=== PATIENT | male | born 1950 | race Caucasian/White ===

== ENCOUNTER 2025-02-06 10:24 | Outpatient (AMB) | payer MEDICARE, SELFPAY ==
--- OUTSIDE RECORDS SUMMARY | 2025-02-06 10:48 | XMS_ITS | Clinical Summary ---
Author Organization [facility] Address [address] [place] [address] Care Team Providers Care Marine Consultant Name Role Phone ChandanaRoger Giorgio Frazier Primary Care Provider Allergies No known active allergies Medications aspirin 81 mg EC tablet 81 mg daily. 5 Active atorvastatin (LIPITOR) 10 mg tablet 10 mg. 8 Active metFORMIN (GLUCOPHAGE) 1,000 mg tablet 8 Active therapeutic multivitamin (THERAGRAN) tablet Take 1 tablet by mouth. Active gabapentin (NEURONTIN) 300 mg capsule Take 300 mg by mouth 2 (two) times a day. Active metFORMIN (GLUCOPHAGE) 1,000 mg tablet metformin Acti ve multivitamin with minerals tablet Take by mouth. Active vit C/E/Zn/coppr/lute in/zeaxan (PRESERVISION AREDS-2 ORAL) Active OneTouch Ultra test strips 1 strip by Other route once a day. Active Active Problems Problem Noted Date Diagnosed Date Acute bacterial sinusitis 05/04/2021 Cervical spondylosis with radiculopathy 03/23/20 21 Overview (05/04/2021): Left C5-C6 Erectile dysfunction due to type 2 diabetes daniella itus 03/23/2021 Kidney cyst, acquired 10/08/2020 Overview (05/04/2021): Left. US 10/07/2020 Colon cancer screening 09/03/2020 Overview (05/04/2021): Colonoscopy 12/18/13 [place] PVD (peripheral vascular disease) 09/03/2020 [place] (obstructive sleep apnea) 06/15/2020 Overview (05/04/2021): Not using CPAP Type 2 diabetes mellitus with diabetic neuropath y 06/15/2020 Diabetes 03/27/2018 Family history of BRCA1 gene positive 01/30/2018 Counseling about travel 07/20/2015 Hyperlipidemia 12/03/2009 Cervical disc disorder at C5-C6 level with radic ulopathy Immunizations Immunization Administration Dates Next Due Hepatitis A Vaccine, Adult Dosage 01/26/2016,,12/03/2009 Influenza, Trivalent, MDV, Injectable ,05/27/2016,05/12/2015,05/05 Pneumococcal Conjugate Vacci ne, 13 Valent 03/31/2016,07/20/2015 Pneumococcal Polysaccharide Vaccine, 23 Valent 07/20/2016,12/04/2012 Tetanus Toxoid, Reduced Diph theria Toxoid, and Acellular Pertussis Vaccine, Adsorbed 07/12/2011,12/03/2009 Typhoid Vi Capsular Polysacc haride Vaccine 03/27/2018,07/20/2015,12/03/2009 Yellow Fever Vaccine Alterna tive Formulation 03/29/2018 Social History Tobacco Use Types Packs/Day Years Used Date Smoking Tobacco: Former Smokeless Tobacco: Never Comments:: Alcohol Use Standard Drinks/Week Comments Yes 0 (1 standard drink = 0.6 oz pur e alcohol) 2-3 weekly Sex and Gender Information Value Date Recorded Sex Assigned at Male 03/18/2021 8:32 AM EDT Legal Sex Male 7:40 AM EDT Gender Identity Male 03/18/2021 8:32 AM EDT Sexual Orientation Straight 03/18/2021 8: 32 AM EDT Last Filed Vital Signs Vital Sign Reading Time Taken Comments Blood Pressure 136/75 03/27/2018 1:33 PM EDT Pulse 78 03/27/2018 1:33 PM EDT Temperature 37.2 C (99 F) 03/27/2018 1:33 PM EDT Respiratory Rate 20 03/27/2018 1:3 3 PM EDT Oxygen Saturation - - Inhaled Oxygen Concentration - - Weight 121.5 kg (267 lb 12.8 oz) 2020 12:23 PM EDT Height 188 cm (6' 2 ) 05/04/2021 12:23 PM EDT Body Mass Index 34.38 05/04/2021 12:23 PM EDT Plan of Treatment Health Maintenance Due Date Last Done Comments Basic Metabolic Panel 1950 Cologuard 1950 Colon Cancer Screening 1950 Colonoscopy 1950 FOBT / Fit Test 1950 Hepatitis C Screening 1950 Sigmoidoscopy 1950 Ophthalmology Exam [address] Lung Cancer Screening (Baseline) 2000 DTaP,Tdap,and Td Vaccines (3 - Td or Tdap) 07/12/2021 07/12/2011, 12/03/2009, 11/17/1996 Hemoglobin A1C 09/20/2021 03/23/2021, 08/23, 07/18/2020 COVID-19 Vaccine ( season) 2024 10/27/2020, 10/06/2020 Alcohol/Substance Use Screening 07/23/2024 Depression Screening and Follow-Up 07/23/2024 Health Care Proxy Review 07/23/2024 Social Drivers of Health Annual Screening 07/23/2024 Influenza Vaccine (#1) 2025 , 05/02/2019, 04/26/2018, Additional history exists RSV Vaccine (60+ years old and patients) (1 - 1-dose 75+ series) 2025 Pneumococcal Vaccine: 50+ Years Completed 07/20/2016, 03/31/2016, 07/20/2015, Additional history exists Zoster Vaccines Completed 11/06/2018, 08/07/2018 Hepatitis B Vaccines Aged Out No long er eligible based on patient's age to complete this topic Insurance BCBS [employer] REPL[employer] PPO Care Teams Marine Consultant Relationship Specialty Start Date End Date Giorgio Nazario PCP - General 02/08/17
--- OUTSIDE RECORDS SUMMARY | 2025-02-06 10:48 | XMS_ITS | Clinical Summary ---
Author Organization [facility] Address [address] [place] [address] Phone Care Team Providers Care Clamshell Operator Name Role Phone Giorgio Nazario MD Primary Care Pr ovider Self-Referred, Patient Unavailable Unavailab Mary Wright MD, MPH Unavailable [phone] Allergies Active Allergy Reactions Criticality Noted Date Comments Penicillins Unknown 01/22/2018 Medications atorvastatin (LIPITOR) 10 MG tablet 10 mg. 8 Active metFORMIN (GLUCOPHAGE) 1000 MG tablet 1 tablet 2 (two) times a day. 8 Active aspirin 81 MG EC tablet Take 81 mg by mouth daily. Active therapeutic multivitamin tablet Take 1 tablet by mouth daily. Active omega 7-umt-whs-fish oil 1,000 mg (120 mg-180 mg) Cap Take 1 capsule by mouth daily. Active coenzyme Q10 100 mg capsule Take 100 mg by mouth daily. Active pseudoephedrine (SUDAFED 12 HOUR) 120 mg 12 hr tablet Take 1 tablet every 12 hours by oral route for 5 days. Active azithromycin (ZITHROMAX) 250 MG tablet TAKE 2 TABLETS (500 MG) BY ORAL ROUTE ONCE DAILY FOR 1 DAY THEN 1 TABLET (250 MG) BY ORAL ROUTE ONCE DAILY FOR 4 DAYS Active Active Problems Problem Noted Date Diagnosed Date Family history of BRCA1 gene positive 01/30/2018 Social History Tobacco Use Types Packs/Day Years Used Date Smoking Tobacco: Never Smokeless Tobacco: Never Alcohol Use Standard Drinks/Week Comments Yes 0 (1 standard drink = 0.6 oz pur e alcohol) 0-6 drinks week Education Answer Date Recorded Are you interested in more education? Not on cristela e 11/21/2022 Are you concerned about learning? Not on file 11/21/2022 No 11/21/2022 No 11/21/2022 Digital Access Answer Date Recorded No 12/17/2022 No 12/17/2022 No 12/17/2022 Reliable internet access at home? Not on file 12/17/2022 Device with a working camera? Not on file Sex and Gender Information Value Date Recorded Sex Assigned at Not on file Legal Sex Male 6:48 PM EST Gender Identity Not on file Sexual Orientation Not on file Last Filed Vital Signs Vital Sign Reading Time Taken Comments Blood Pressure 128/67 01/22/2018 1:15 PM EDT Pulse 64 01/22/2018 1:15 PM EDT Temperature 36.7 C (98.1 F) 01/22/2018 1:15 PM EDT Respiratory Rate 16 01/22/2018 1:15 PM EDT Oxygen Saturation - - Inhaled Oxygen Concentration - - Weight 123.6 kg (272 lb 7.8 oz) 01/22/2018 1:15 PM EDT Height 186 cm (6' 1.23 ) 01/22/2018 1:15 PM EDT dfci Body Mass Index 35.73 01/22/2018 1:15 PM EDT Plan of Treatment Health Maintenance Due Date Last Done Comments Adult Td,Tdap Booster 1950 CREATININE LEVEL 1950 LIPID PANEL 1950 DEPRESSION SCREENING 1962 HEPATITIS C SCREENING 1968 COLOGUARD 11/24/1995 COLONOSCOPY 11/24/1995 COLORECTAL CANCER SCREENING 11/24/1995 FIT TEST 11/24/1995 FOBT 11/24/1995 SIGMOIDOSCOPY 11/24/1995 VIRTUAL COLONOSCOPY 11/24/1995 PNEUMOCOCCAL VACCINES (50+ years) (1 of 1 - PCV) 2000 COVID-19 VACCINE (2 - 2023-2 5 season) 2024 10/06/2020 RSV VACCINE (1 - 1-dose 75+ series) 2025 SMOKING STATUS SCREENING (On ce After 26 Yrs) Completed 01/22/2018 ZOSTER VACCINES Completed 11/06/2018, 08/07/2018 HEPATITIS A VACCINES Aged Out No long er eligible based on patient's age to complete this topic HIB VACCINES Aged Out No longer eligi ble based on patient's age to complete this topic MENINGOCOCCAL VACCINES (ACWY) Aged Out No longer eligible based on patient's age to complete this topic MENINGOCOCCAL VACCINES (B) Aged Out N o longer eligible based on patient's age to complete this topic Medical Devices Not on file Insurance [place] BL[place] RE[place]AC[place] [facility] MEDICARE PPO BLUE REPLACEMENT [facility] MEDICARE PPO BLUE REPLACEMENT [facility] MEDICARE PPO BLUE REPLACEMENT [facility] MEDICARE PPO BLUE REPLACEMENT [facility] MEDICARE PPO BLUE REPLACEMENT [facility] MEDICARE PPO BLUE RE[place]AC[place] BL[place]AC[place] Care Teams Clamshell Operator Relationship Specialty Start Date End Date [place] [address] PCP - General Family Medicine 01/01/18 Self-Referred, Patient 01/01/18 Mary Jordan MD, MPH [address] [place], [place] [id number] [place] [address] [email or web address] Medical Oncology 01/22/18 Additional Source Comments The information contained in this document represents components of the legal health record. It is not the complete legal health record.[facility]
--- OUTSIDE RECORDS SUMMARY | 2025-02-06 10:48 | XMS_ITS | Encounter Summary ---
Author Organization [facility] Address [address] [place] [address] Care Team Providers Care Card Cleaner Name Role Phone Giorgio Nazario MD Primary Care Provid er Suzanna Arreaga MD Unavailable [phone] Americo Haque MD Unavailable Haroldo Giraldo Unavailable Giorgio Lundberg MD Unavailable Marcelo Hall MD Unavailable [phone] Fam Dia MD Unavailable [phone] Khurram Santos MD Unavailable [phone] Americo Alicea MD Unavailable [phone] Junaid Cortés MD Unavailable [phone] Mohsen Eid MD Unavailable [phone] Suzanna Moore Unavailable [phone] Encounter Details Date Type Department Care Team (Late st Contact Info) Description 06/24/2017 Orders Only [place] [address] [address] Winsome Flores NP Social History Tobacco Use Types Packs/Day Years Used Date Smoking Tobacco: Never Smokeless Tobacco: Never Alcohol Use Standard Drinks/Week Comments Not Asked 0 (1 standard drink = 0.6 oz pur e alcohol) Sex and Gender Information Value Date Recorded Sex Assigned at Male 03/23/2021 8:14 AM EDT Legal Sex Male 10:42 PM EDT Gender Identity Male 03/23/2021 8:14 AM EDT Sexual Orientation Straight 03/23/2021 8: 14 AM EDT documented as of this encounter Plan of Treatment Upcoming Encounters Date Type Department Care Team (Late st Contact Info) Description 06/15/2025 10:40 AM EST Office Visit [facility] [address] [place] [address] Giorgio Nazario MD [address] [place] [address] 6 Month Followup documented as of this encounter Procedures * Due to [facility] law, this organization might not be sharing negative HIV tests. Procedure Name Priority Date/Time Associated Diagnosis Comments EKG-USE ONLY IN READYMED/OCC MED/CARDIO Routine 06/23/2017 11:35 AM EST Irregular heart beat documented in this encounter Results * Due to [place] [employer] law, this organization might not be sharing negative HIV tests. * EKG-USE ONLY IN READYMED/OCC MED/CARDIO OR AGE <18 (06/23/2017 11:35 AM EST) VENTRICULAR RATE 50 BPM MUS E EKG SYSTEM ATRIAL RATE 50 BPM MUSE EKG SYSTEM P-R INTERVAL 160 ms MUSE EK G SYSTEM QRS DURATION 90 ms MUSE EK G SYSTEM QT 448 ms MUSE EKG SYSTEM QTC 408 ms MUSE EKG SYSTEM P AXIS 5 degrees MUSE EKG SYSTEM R AXIS -32 degrees MUSE EKG SYSTEM T AXIS 13 degrees MUSE EKG SYSTEM EKG INTERPRETATION Sinus bradycardia Left axis deviation Abnormal ECG No previous ECGs available MUSE EKG SYSTEM 06/23/2017 11:3 5 AM EST 06/24/2017 9:07 PM EST us Winsome Flores NP CARDIOVASCULAR-WITH INBSKT RT G Final Result MUSE EKG SYSTEM documented in this encounter Visit Diagnoses Diagnosis Irregular heart beat Cardiac dysrhythmia, unspecified documented in this encounter Care Teams Card Cleaner Relationship Specialty Start Date End Date Giorgio Nazario MD PCP - General Family Medicine 11/10/14 Suzanna Arreaga MD [facility] [address] [place] [address] Consulting Physician Optometry 06/15/20 Americo Haque MD [facility] [address] [place] [address] Consulting Physician Hand Surgery 06/15/20 10/12/22 Haroldo Giraldo [address] [place] [address] Consulting Physician Orthopaedic Surgery 06/15/2010/12 Giorgio Lundberg MD [facility] [address] [address] Consulting Physician Allergy 06/15/20 10/12/22 Marcelo Hall MD [facility] [address] [facility] [address] [place] [address] Consulting Physician Orthopaedic Surgery 09/03/2010/12 Fam Dia MD [address] [place] [address] Urology 03/23/21 10/12/22 Khurram Santos MD [facility] [address] [place] [address] [address] [place] [address] Ophthalmology 03/23/21 10/12/22 Americo Alicea MD [address] [place] [address] Ophthalmology 10/26/23 Junaid Cortés MD [address] [place] [address] Gen & Vascular Surgery 10/26/23 5 Mohsen Eid MD [address] [address] Orthopedics 10/26/23 Suzanna Moore PA [address] [place] [address] Orthopedics 10/26/23 documented as of this encounter
--- OUTSIDE RECORDS SUMMARY | 2025-02-06 10:48 | XMS_ITS | Data Portability ---
Author Organization [facility] svmg_admin Address [address] [place] [id number] Care Team Providers Care Director Of Blood Name Role Phone FAHEEM VANCE Referring Provider [facility] Senior Internet Sales Consultant GABRIELA PEOPLES Adult Reconstructive Orthopedic Surgeon ARNAUD LOPEZ Hand Surgeon MING GUARDADO Welt Stitcher Assessment Encounter Date Assessment Date Assessment LastModified by Organization Details LastModified Time 10/17/2017 10/17/2017 MOLST form given to pt christopher Not available 10/17/2017 09:06:10 05/07/2019 05/07/2019 MOLST form given to pt christopher Not available 05/07/2019 08:55:24 11/07/2019 11/07/2019 This is a Telehealth visit, via modality telephone. Patient understands the risks, benefits and limitations of this type of visit. Patient consents for this visit This type of visit is being utilized as it was deemed higher risk for patient to come to office given the current risk of COVID-19/coronav irus infection. The patient is located at home at the time of this visit. Physician is located at [address] [place] [address] at the time of this visit, [facility] Visit Began: 8:30 AM Visit Ended: 8:45 AM 50% or greater of the time was spent on counselling and coordination of care. The following people were with the patient at time of this Telehealth visit: Patient only christopher Not available 11/07/2019 08:37:49 Plan of Treatment Reminders Order Date Submit Date Provider Last Modified By Organization Details Last Modified Time Details Appointments None record ed. Lab HbA1c (hemog lobin A1c), blood 2019 [place] [facility], [address] [place] [address], [address], 0 07:06:14 microa lbumin /creat inine, mass ratio, urine 2019 020 [place] [facility], [address] [place] [address], [address], 0 07:06:14 lipid panel, serum 2019 020 [facility], [address] [place] [address], [address], 0 07:06:13 CMP, serum or plasma 2019 020 [place] [facility], [address] [place] [address], [address], 0 07:06:13 TSH, ultra- sensit kenneth, serum 2019 020 [facility], [address] [place] [address], [address], 0 07:06:15 PSA, serum or plasma 2018 019 [facility]), [address], [place], [address], 9 12:41:11 HbA1c (hemog lobin A1c), blood 2018 019 [facility] ([facility]), [address], [place], [address], 9 05:05:30 microa lbumin /creat inine, mass ratio, urine 2018 019 [facility] ([facility]), [address], [place], [address], 9 12:41:00 HbA1c (hemog lobin A1c), blood 2018 019 [facility] ([facility]), [address], [place], [address], 9 15:09:35 lipid panel, serum 2018 019 [facility] ([facility]), [address], [place], [address], 9 15:09:49 CMP, serum or plasma 2018 019 [facility] ([facility]), [address], [place], [address], 9 15:09:40 prosta te specif ic Ag, serum or plasma 2017 018 [facility] ([facility]), [address], [place], [address], 8 17:26:36 HbA1c (hemog lobin A1c), blood 2017 018 [facility] ([facility]), [address], [place], [address], 8 17:06:25 microa lbumin /creat inine, mass ratio, urine 2017 018 [facility] ([facility]), [address], [place], [address], 8 17:08:09 hepati tis C Ab, signal -to-cu toff, serum or plasma 2017 018 [facility] ([facility]), [address], [place], [address], 8 09:33:37 HbA1c (hemog lobin A1c), blood 2017 018 [facility], [address] [place] [address], [address], 8 14:53:17 lipid panel, serum 2017 018 [facility], [address] [place] [address], [address], 8 13:40:15 CMP, serum or plasma 2017 018 [facility], [address] [place] [address], [address], 8 13:40:14 Referral allerg ist & immuno logist referr al - H/O PCN allerg y as a child. Would like to see if this is real 2017 018 [facility], [address] [place] [address] [address], [place], [address], 8 09:45:27 Procedures colono scopy screen ing (PROC) - 5 year F/U colono sscopy 2017 018 ATHENAFAX Not available 8 13:45:20 Surgeries None record ed. [facility], [address] [place] [address], [address], 9 08:58:21 Medication Orders topira mate 25 mg tablet 2019 020 INTERFACE [id number], [address] [place], [address], 0 08:52:47 Lyrica 50 mg capsul e 2017 018 jruanoescobar [id number], [address] [place], [address], 9 08:19:21 gabape ntin 100 mg capsul e 2017 018 linnette on [id number], [address] [place], [address], 8 08:41:30 Patient TargetsNo targets recorded. Patient Instructions Encounter Date Encounter Id Patient Instructions Last Modified By Organization Details Last Modified Time 10/17/2017 [id number] A healthy lifestyle: care instructions christopher Not available 10/17/2017 09:23:33 type 2 diabetes: care instructions christopher Not available 10/17/2017 09:23:34 04/22/2018 [id number] advance care planning: care instructions christopher Not available 04/22/2018 08:56:13 A healthy lifestyle: care instructions christopher Not available 04/22/2018 08:56:14 preventing falls: care instructions christopher Not available 04/22/2018 08:56:14 type 2 diabetes: care instructions christopher Not available 04/22/2018 08:56:14 learning about penicillin allergy christopher Not available 04/22/2018 08:56:13 COUNSELING & COORDINATION of CARE Yes Increase Exercise Yes Encourage Weight Loss Yes Decrease Fat N/A Diabetic Patient Couseling N/A Smoking Cessation No Decrease Alcohol Yes Decrease Salt Yes Increase Fiber Yes Increase H20 Yes Counseled patient regarding Lab/Dx/need for follow-up Yes Discussed medications, side effects, & compliance Yes Dental Care Yes Eye Exam christopher Not available 04/22/2018 08:55:15 11/01/2018 [id number] type 2 diabetes: care instructions christopher Not available 11/01/2018 08:28:03 05/07/2019 [id number] type 2 diabetes: care instructions christopher Not available 05/07/2019 08:55:26 advance care planning: care instructions christopher Not available 05/07/2019 08:55:26 A healthy lifestyle: care instructions christopher Not available 05/07/2019 08:55:26 preventing falls: [facility] 05/07/2019 08:55:26 COUNSELING & COORDINATION of CARE Yes Increase Exercise Yes Encourage Weight Loss Yes Decrease Fat Yes Diabetic Patient Couseling N/A Smoking Cessation No Decrease Alcohol Yes Decrease Salt Yes Increase Fiber Yes Increase H20 Yes Counseled patient regarding Lab/Dx/need for follow-up Yes Discussed medications, side effects, & compliance Yes Dental Care Yes Eye Exam [facility] Not available 05/07/2019 08:55:04 11/07/2019 [id number] A healthy lifestyle: care instructions [facility] Not available 11/07/2019 08:52:45 type 2 diabetes: care instructions [facility] Not available 11/07/2019 08:52:44 neuropathic pain: care instructions 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 Would like to see if this is real Referring Physician: Ming Nazario, Family Medicine, Encounter Date: 04/22/2018 Results Created Date Observation Date Name Description Value Unit Range Abnormal Flag Note LastModifiedBy Organization Detail LastModifiedTime 10/18/19 18 10/17/2017 CMP, serum or plasm a sodium 140 mmol/ L 135-14 5 Not Available [facility] (Lab) [address] [place], [address], 10/17/2017 13:40:14 10/18/19 18 10/17/2017 CMP, serum or plasm a potassium 4.4 mmol/ L 3.5-5. 1 Not Available [facility] (Lab) [address] [place], [address], 10/17/2017 13:40:14 10/18/19 18 10/17/2017 CMP, serum or plasm a chloride 99 mmol/ L 96-104 Not Available [facility] (Lab) [address] [place], [address], 10/17/2017 13:40:14 10/18/19 18 10/17/2017 CMP, serum or plasm a carbon dioxide 28 mmol/ L 22-30 Not Available [facility] (Lab) [address] [place], [address], 10/17/2017 13:40:14 10/18/19 18 10/17/2017 CMP, serum or plasm a anion gap 13 mmol/ L 9-18 Not Available [facility] (Lab) [address] [place], [address], 10/17/2017 13:40:14 10/18/19 18 10/17/2017 CMP, serum or plasm a glucose 134 mg/dL 70-105 high Not Available [facility] (Lab) [address] [place], [address], 10/17/2017 13:40:14 10/18/19 18 10/17/2017 CMP, serum or plasm a BUN 19 mg/dL 8-21 Not Available [facility] (Lab) [address] [place], [address], 10/17/2017 13:40:14 10/18/19 18 10/17/2017 CMP, serum or plasm a creatinine 0.80 mg/dL 0.67-1 .17 Not Available [facility] (Lab) [address] [place], [address], 10/17/2017 13:40:14 10/18/19 18 10/17/2017 CMP, serum or plasm a estimated GFR > 60 mL/mi n >60 Not Available [facility] (Lab) [address] [place], [address], 10/17/2017 13:40:14 10/18/19 18 10/17/2017 CMP, serum or plasm a estimated GFR, -[place] > 60 mL/mi n >60 Not Available [facility] (Lab) [address] [place], [address], 10/17/2017 13:40:14 10/18/19 18 10/17/2017 CMP, serum or plasm a calcium 9.8 mg/dL 8.6-10 .3 Not Available [facility] (Lab) [address] [place], [address], 10/17/2017 13:40:14 10/18/19 18 10/17/2017 CMP, serum or plasm a total protein 7.2 g/dL 6.2-8. 4 Not Available [facility] (Lab) [address] [place], [address], 10/17/2017 13:40:14 10/18/19 18 10/17/2017 CMP, serum or plasm a albumin 4.5 g/dL 3.4-4. 8 Not Available [facility] (Lab) [address] [place], [address], 10/17/2017 13:40:14 10/18/19 18 10/17/2017 CMP, serum or plasm a bilirubin total 0.7 mg/dL 0.2-1. 0 Not Available [facility] (Lab) [address] [place], [address], 10/17/2017 13:40:14 10/18/19 18 10/17/2017 CMP, serum or plasm a AST/SGOT 15 U/L 10-44 Not Available [facility] (Lab) [address] [place], [address], 10/17/2017 13:40:14 10/18/19 18 10/17/2017 CMP, serum or plasm a ALT/SGPT 12 U/L 10-44 Not Available [facility] (Lab) [address] [place], [address], 10/17/2017 13:40:14 10/18/19 18 10/17/2017 CMP, serum or plasm a alk phos total 66 U/L 25-165 Not Available [facility] (Lab) [address] [place], [address], 10/17/2017 13:40:14 10/18/19 18 10/17/2017 CMP, serum or plasm a note Patie nt accou nt numbe r: [id number] 32 Order ing physi ligia: Kinga [place] , Pipo s E Other provi ders: Pipo s [place] [employer] , , , , Pipo s [place] [employer] , , Not Available [facility] (Lab) [address] [place] [address], [address], 10/17/2017 13:40:14 10/18/19 18 10/17/2017 lipid panel , serum cholesterol 122 mg/dL <200 Based on NCEP guide lines Not Available [facility] (Lab) [address] [place] [address], [address], 10/17/2017 13:40:15 10/18/19 18 10/17/2017 lipid panel , serum triglyceride s 120 mg/dL <200 <200 mg/dl = Karla able 200-3 00 mg/dl = Borde rline high >300 mg/dl = High Not Available [facility] (Lab) [address] [place], [address], 10/17/2017 13:40:15 10/18/19 18 10/17/2017 lipid panel , serum HDL cholesterol 47 mg/dL Natio nal Ne stero l Educa tion Progr am Guide lines <40 mg/dL : Major Risk for CHD >= 60 mg/dl : Negat kenneth Risk for CHD Not Available [facility] (Lab) [address] [place], [address], 10/17/2017 13:40:15 10/18/19 18 10/17/2017 lipid panel , serum LDL cholesterol 51 mg/dL <159 < 130 mg/dl = Karla able 130-1 59 mg/dl = Borde rline high > 159 mg/dl = High Not Available [facility] (Lab) [address] [place], [address], 10/17/2017 13:40:15 10/18/19 18 10/17/2017 lipid panel , serum chol/HDL ratio 2.60 Not Available [facility] (Lab) [address] [place], [address], 10/17/2017 13:40:15 10/18/19 18 10/17/2017 lipid panel , serum coronary risk factor < 0.50 0.00-1 .00 Not Available [facility] (Lab) [address] [place], [address], 10/17/2017 13:40:15 10/18/19 18 10/17/2017 lipid panel , serum note Patie nt accou nt numbe r: [id number] 32 Order ing physi ligia: Kinga madison , Pipo silverman E Other provi ders: Pipo madison , , , , Pipo madison , , Not Available [facility] (Lab) [address] [place], [address], 10/17/2017 13:40:15 10/18/19 18 10/17/2017 HbA1c (hemo globi n A1c), blood HGB A1C 6.2 % 4.8-5. 9 high Hemog lobin A1c (%) Degre e of gluco se contr ol Great er than 8 Addit ional actio n sugge sted Less than 7 Diabe tic thera peuti c goal Less than 6 Non-d iabet ic level Not Available [facility] (Lab) [address] [place], [address], 10/17/2017 14:53:17 10/18/19 18 10/17/2017 HbA1c (hemo globi n A1c), blood est avg glucose 131 <148 Estim ated avera ge gluco se level for the previ ous 3 month perio d. Not Available [facility] (Lab) [address] [place] [address], [address], 10/17/2017 14:53:17 10/18/19 18 10/17/2017 HbA1c (hemo globi n A1c), blood note Patie nt accou nt numbe r: [id number] 32 Order ing physi ligia: Kinga [facility] gricelda , Pipo silverman E Other provi ders: Pipo Donato [facility] gricelda , , , , Pipo Donato [facility] gricelda , , Not Available [facility] (Lab) [address] [place] [address], [address], 10/17/2017 14:53:17 04/22/20 18 04/22/2018 HbA1c (hemo globi n A1c), blood A1C 6.1 % 4.0-6. [address] [facility] ([facility]) [address], [place], [address], 04/22/2018 17:06:25 04/22/20 18 04/22/2018 micro album in/cr eatin ine, mass ratio , urine MA/cr 0.5 ug/mg Resul t amend ed from (0.0) (04/22 4:50 PM) to (0.5) by PS. Not Available [facility] ([facility]) [address], [place], [address], 06/10/2018 16:44:30 04/22/20 18 04/22/2018 micro album in/cr eatin ine, mass ratio , urine malb 1.1 mg/dL <1.7 Not Available [facility] ([facility]) [address], [place], [address], 06/10/2018 16:44:30 04/22/20 18 04/22/2018 micro album in/cr eatin ine, mass ratio , urine ucrea 201 mg/dL Not Available [facility] ([facility] [address], [place], [address], 06/10/2018 16:44:30 04/22/20 18 04/22/2018 micro album in/cr eatin ine, mass ratio , urine MA/cr 0.0 ug/mg Not Available [facility] ([facility] [address], [place], [address], 04/22/2018 17:08:09 04/22/20 18 04/22/2018 micro album in/cr eatin ine, mass ratio , urine malb 1.1 mg/dL <1.7 Not Available [facility] ([facility] [address], [place], [address], 04/22/2018 17:08:09 04/22/20 18 04/22/2018 micro album in/cr eatin ine, mass ratio , urine ucrea 201 mg/dL Not Available [facility] ([facility] [address] , [place], [address], 04/22/2018 17:08:09 04/22/20 18 04/22/2018 prost ate speci fic Ag, serum or plasm a PSA 0.25 NG/mL 0.00-[address] [facility] ([facility] [address], [place], [address], 04/22/2018 17:26:36 04/22/20 18 04/22/2018 hepat itis C virus Ab, serum hepatitis C Ab Nonrea ctive nonrea ctive Not Available [facility] (Lab) [address] [facility], [place], [address], 04/23/2018 09:33:37 04/22/20 18 04/22/2018 hepat itis C virus Ab, serum note Patie nt accou nt numbe r: [id number] 22 Order ing physi ligia: Kinga Jennie gricelda , Pipo silverman E Other provi ders: Pipo Donato rob-Flavio madison , , , , Pipo [facility]ato [facility] , , Not Available [facility] (Lab) [address] [facility], [place], [address], 04/23/2018 09:33:37 11/08/19 19 11/07/2018 HbA1c (hemo globi n A1c), blood A1C 5.1 % 4.0-6. [address] [facility] ([facility] [address] , [place], [address], 11/07/2018 15:09:35 11/08/19 19 11/07/2018 CMP, serum or plasm a glu 133 mg/dL 70-100 high Not Available [facility] ([facility]) [address] , [place], [address], 11/07/2018 15:09:40 11/08/19 19 11/07/2018 CMP, serum or plasm a BUN 22 mg/dL 9-20 high Not Available [facility] ([facility]) [address] , [place], [address], 11/07/2018 15:09:40 11/08/19 19 11/07/2018 CMP, serum or plasm a crea 0.8 mg/dL 0.8-1. [address] [facility] ([facility]) [address] , [place], [address], 11/07/2018 15:09:40 11/08/19 19 11/07/2018 CMP, serum or plasm a egfraa 117 mL/mi n/1.[address] [facility] ([facility]) [address] , [place], [address], 11/07/2018 15:09:40 11/08/19 19 11/07/2018 CMP, serum or plasm a egfrnaa 96 mL/mi n/1.7 3m2 Note: eGFR Afric an and Non-A frica n Ameri can Chron ic kidne y disea se (CKD) is defin ed as eithe r kidne y damag e or persi stent reduc tion for 3 month s or more in an EGFR <60 ml/mi n/1.7 3 m2. Patie nts with EGFR value s > / =60 ml/mi n/1.7 3 m2 may also have CKD if evide nce of persi stent prote inuri a is prese nt. Refer to www.k doqi. org for addit ional infor rebekah nevarez on CKD. Not Available [facility] ([facility]) [address] , [place], [address], 11/07/2018 15:09:40 11/08/19 19 11/07/2018 CMP, serum or plasm a BUN/crea 28 ratio 10-28 Not Available [facility] ([facility]) [address] , [place], [address], 11/07/2018 15:09:40 11/08/19 19 11/07/2018 CMP, serum or plasm a tbil 0.80 mg/dL 0.20-[address] [facility] ([facility]) [address] , [place], [address], 11/07/2018 15:09:40 11/08/19 19 11/07/2018 CMP, serum or plasm a AST 25 U/L 17-59 Not Available [facility] ([facility]) [address] , [place], [address], 11/07/2018 15:09:40 11/08/19 19 11/07/2018 CMP, serum or plasm a ALT 20 U/L 21-72 low Not Available [facility] ([facility]) [address] , [place], [address], 11/07/2018 15:09:40 11/08/19 19 11/07/2018 CMP, serum or plasm a ALKP 69 U/L 38-126 Not Available [facility] ([facility]) [address], [place], [address], 11/07/2018 15:09:40 11/08/19 19 11/07/2018 CMP, serum or plasm a Ca 9.6 mg/dL 8.4-[address] [facility] ([facility] [address], [place], [address], 11/07/2018 15:09:40 11/08/19 19 11/07/2018 CMP, serum or plasm a Na 141 mmol/ L 135-[address] [facility] ([facility]) [address] , [place], [address], 11/07/2018 15:09:40 11/08/19 19 11/07/2018 CMP, serum or plasm a K 4.2 mmol/ L 3.5-5. [address] [facility] ([facility]) [address] , [place], [address], 11/07/2018 15:09:40 11/08/19 19 11/07/2018 CMP, serum or plasm a cL 100 mmol/ L 98-[address] [facility] ([facility]) [address] , [place], [address], 11/07/2018 15:09:40 11/08/19 19 11/07/2018 CMP, serum or plasm a CO2 31 mmol/ L 22-[address] [facility] ([facility]) [address] , [place], [address], 11/07/2018 15:09:40 11/08/19 19 11/07/2018 CMP, serum or plasm a agap 10 mEq/L 4-18 Not Available [facility] ([facility]) [address] , [place], [address], 11/07/2018 15:09:40 11/08/19 19 11/07/2018 CMP, serum or plasm a TP 7.3 g/dL 6.3-8. [address] [facility] ([facility]) [address] , [place], [address], 11/07/2018 15:09:40 11/08/19 19 11/07/2018 CMP, serum or plasm a alb 4.5 g/dL 3.5-6. [address] [facility] ([facility]) [address] , [place], [address], 11/07/2018 15:09:40 11/08/19 19 11/07/2018 CMP, serum or plasm a glob 3 g/dL 2-4 Not Available [facility] ([facility]) [address] [facility], [place], [address], 11/07/2018 15:09:40 11/08/19 19 11/07/2018 CMP, serum or plasm a A/G 1.6 ratio 1.0-2. [address] [facility] ([facility]) [address] [facility], [place], [address], 11/07/2018 15:09:40 11/08/19 19 11/07/2018 lipid panel , serum trig 157 mg/dL <150 high Ramona l: <150 mg/dL Borde rline High: 150-1 99 mg/dL High: 200-4 99 mg/dL Very High: great er than or equal to 500 mg/dL Not Available [facility] ([facility]) [address] [facility], [place], [address], 11/07/2018 15:09:49 11/08/19 19 11/07/2018 lipid panel , serum chol 130 mg/dL <200 Karla able: <200 mg/dL Borde rline High: 200-2 39 mg/dL High: great er than or equal to 240 mg/Dl Not Available [facility] ([facility]) [address] [facility], [place], [address], 11/07/2018 15:09:49 11/08/19 19 11/07/2018 lipid panel , serum HDL 49 mg/dL >46 Not Available [facility] ([facility]) [address] , [place], [address], 11/07/2018 15:09:49 11/08/19 19 11/07/2018 lipid panel , serum LDLC 50 mg/dL <129 Targe t for non-H DL ne stero l is 30 mg/dL highe r than LDL ne stero l targe t. Not Available [facility] ([facility]) [address] [facility], [place], [address], 11/07/2018 15:09:49 11/08/19 19 11/07/2018 lipid panel , serum chol/HDL 3 ratio <5 Not Available [facility] ([facility]) [address] [facility], [place], [address], 11/07/2018 15:09:49 11/08/19 19 11/07/2018 lipid panel , serum LDL/HDL 1 ratio >0 Not Available [facility] ([facility]) [address] [facility], [place], [address], 11/07/2018 15:09:49 11/08/19 19 11/07/2018 lipid panel , serum VLDL 31 mg/dL <29 high Not Available [facility] ([facility]) [address] [facility], [place], [address], 11/07/2018 15:09:49 05/07/20 19 05/07/2019 micro album in/cr eatin ine, mass ratio , urine microalbumin 0.7 mg/dL <1.[address] [facility] ([facility]) [address] [facility], [place], [address], 05/07/2019 12:41:00 05/07/20 19 05/07/2019 micro album in/cr eatin ine, mass ratio , urine ucrea 165 mg/dL Not Available [facility] ([facility]) [address], [place], [address], 05/07/2019 12:41:00 05/07/2005/07/2019 PSA, serum or plasm a PSA 0.25 NG/mL 0.00-[address] [facility] ([facility]) [address], [place], [address], 05/07/2019 12:41:11 05/07/20 19 05/08/2019 HbA1c (hemo globi n A1c), blood hemoglobin A1C 6.5 % 4.8-5. 6 high Predi abete s: 5.7 - 6.4 Diabe zoe: >6.4 Glyce shaneka contr ol for adult s with diabe zoe: <7.0 Not Available [facility] [address], [address], 05/08/2019 05:05:30 11/12/19 20 11/12/2019 CMP, serum or plasm a glucose 145 mg/dL 65-99 above high normal Not Available [facility] ([facility]) [address] [place], [address], 11/13/2019 07:06:13 11/12/19 20 11/12/2019 CMP, serum or plasm a BUN 20 mg/dL 8-27 Not Available [facility] ([facility]) [address] [place], [address], 11/13/2019 07:06:13 11/12/19 20 11/12/2019 CMP, serum or plasm a creatinine 0.90 mg/dL 0.76-1 .27 Not Available [facility] ([facility]) [address] [place], [address], 11/13/2019 07:06:13 11/12/19 20 11/12/2019 CMP, serum or plasm a eGFR if nonafricn AM 87 mL/mi n/1.7 3 >59 Not Available [facility] ([facility] [facility] [address] [facility], [place], [address], 11/13/2019 07:06:13 11/12/19 20 11/12/2019 CMP, serum or plasm a eGFR if africn AM 101 mL/mi n/1.7 3 >59 Not Available [facility] ([facility]) [address] [facility] [place], [address], 11/13/2019 07:06:13 11/12/19 20 11/12/2019 CMP, serum or plasm a BUN/creatini ne ratio 13 05- Not Available [facility] ([facility]) [address] [facility] [place], [address], 11/13/2019 07:06:13 11/12/19 20 11/12/2019 CMP, serum or plasm a sodium 140 mmol/ L 134-14 4 Not Available [facility] ([facility]) [address] [place], [address], 11/13/2019 07:06:13 11/12/1911/12/2019 CMP, serum or plasm a potassium 4.4 mmol/ L 3.5-5. 2 Not Available [facility] ([facility]) [address] [place], [address], 11/13/2019 07:06:13 11/12/19 20 11/12/2019 CMP, serum or plasm a chloride 99 mmol/ L 96-106 Not Available [facility] ([facility]) [address] [place], [address], 11/13/2019 07:06:13 11/12/19 20 11/12/2019 CMP, serum or plasm a carbon dioxide, total 27 mmol/ L 20-29 Not Available [facility] ([facility]) [address] [place], [address], 11/13/2019 07:06:13 11/12/1911/12/2019 CMP, serum or plasm a calcium 9.6 mg/dL 8.6-10 .2 Not Available [facility] ([facility]) [address] [facility] [place], [address], 11/13/2019 07:06:13 11/12/19 20 11/12/2019 CMP, serum or plasm a protein, total 7.1 g/dL 6.0-8. 5 Not Available [facility] ([facility]) [address] [place], [address], 11/13/2019 07:06:13 11/12/19 20 11/12/2019 CMP, serum or plasm a albumin 4.7 g/dL 3.8-4. 8 Not Available [facility] ([facility]) [address] [place], [address], 11/13/2019 07:06:13 11/12/19 20 11/12/2019 CMP, serum or plasm a globulin, total 2.4 g/dL 1.5-4. 5 Not Available [facility] ([facility]) [address] [place], [address], 11/13/2019 07:06:13 11/12/19 20 11/12/2019 CMP, serum or plasm a A/G ratio 2.0 1.2-2. 2 Not Available [facility] ([facility]) [address] [place], [address], 11/13/2019 07:06:13 11/12/1911/12/2019 CMP, serum or plasm a bilirubin, total 0.5 mg/dL 0.0-1. 2 Not Available [facility] ([facility]) [address] [place], [address], 11/13/2019 07:06:13 11/12/19 20 11/12/2019 CMP, serum or plasm a alkaline phosphatase 72 IU/L 39-117 Not Available [facility] ([facility]) [address] [place], [address], 11/13/2019 07:06:13 11/12/19 20 11/12/2019 CMP, serum or plasm a AST (SGOT) 20 IU/L 0-40 Not Available [facility] ([facility]) [address] [facility] [place], [address], 11/13/2019 07:06:13 11/12/19 20 11/12/2019 CMP, serum or plasm a ALT (SGPT) 17 IU/L 0-44 Not Available [facility] ([facility]) [address] [place], [address], 11/13/2019 07:06:13 11/12/19 20 11/12/2019 lipid panel , serum cholesterol, total 126 mg/dL 100-19 9 Not Available [facility] ([facility]) [address] [place], [address], 11/13/2019 07:06:13 11/12/19 20 11/12/2019 lipid panel , serum triglyceride s 94 mg/dL 0-149 Not Available [facility] ([facility]) [address] [place], [address], 11/13/2019 07:06:13 11/12/19 20 11/12/2019 lipid panel , serum HDL cholesterol 49 mg/dL >39 Not Available [facility] ([facility]) [address] [place], [address], 11/13/2019 07:06:13 11/12/19 20 11/12/2019 lipid panel , serum VLDL cholesterol franca 19 mg/dL 5-40 Not Available [facility] ([facility]) [address] [place], [address], 11/13/2019 07:06:13 11/12/19 20 11/12/2019 lipid panel , serum LDL cholesterol calc 58 mg/dL 0-99 Not Available [facility] ([facility]) [address] [place], [address], 11/13/2019 07:06:13 11/12/19 20 11/12/2019 lipid panel , 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 Not Available [facility] ([facility]) [address] [facility], [place], [address], 11/13/2019 07:06:14 11/12/19 20 11/12/2019 micro album in/cr eatin ine, mass ratio , urine albumin, urine <13.7 ug/mL not estab. Not Available [facility] ([facility]) [address] [facility], [place], [address], 11/13/2019 07:06:14 11/12/19 20 11/12/2019 micro album in/cr eatin ine, mass ratio , urine alb/creat ratio NOTE mg/g_ creat 0-29 Ramona l: 0 - 29 Moder ately incre ased: 30 - 300 Sever jeb incre ased: >300 Unabl e to calcu late resul t since non-n umeri c resul t obtai candida for compo nent test. Ple ase note refer ence inter neris rowan e Not Available [facility] ([facility]) [address] [facility], [place], [address], 11/13/2019 07:06:14 11/12/19 20 11/13/2019 HbA1c (hemo globi n A1c), blood hemoglobin A1C 6.4 % 4.8-5. 6 above high normal Predi abete s: 5.7 - 6.4 Diabe zoe: >6.4 Glyce shaneka contr ol for adult s with diabe zoe: <7.0 Not Available [facility] ([facility]) [address] [facility], [place], [address], 11/13/2019 07:06:14 11/12/19 20 11/12/2019 TSH, ultra -sens itive , serum TSH 2.950 uIU/m L 0.450- 4.500 Not Available [facility] ([facility]) [address], [place], [address], 11/13/2019 07:06:15 10/03/19 19 10/02/2018 XR, shoul madhav, 2 or more view [facility] [address] [place] [address], [address] Name: LISSETTE BAIRD : [id number] Date of Servic e: 824 Acct Number : [id number] Order Number : [id number] Locati on: [facility] Report Number : [id number] Servic e: REG REF/ Reques ting Physic eddi: Fellow sArsh PA-C Catego ry: ORTHOP EDIC RADIOL OGY [facility] Exam: SHOULD ER 2 VIEW MINIMU M Left Access ion #: [id number] VH Signs/ Sympto ms: LT. SHD PAIN Report Status : Sig candida Examin ation: XR Should er Left, 3 views Indica tion: Left should er pain. Techni que: 3 views of the Left should er were obtain ed. Compar sathya: None. Findin gs: No eviden ce for acute fractu re or disloc ation. Mild degene rative change s involv ing the left glenoh umeral and left acromi oclavi cular joints . Soft tissue s and lung garcia appear unrema rkable . Impres aguilar: No eviden ce for acute fractu re or disloc ation. Date/T nadre of Dictat ion: 920 Radiol ogy Reside nt (if applic able): Approv ed By Attend ing Radiol ogist: [facility] [place] [facility] 920 Orderi ng physic eddi: Janna silverman Fellow s Other provid ers: Janna silverman Fellow s, Janna silverman Fellow s, , Ming [facility] gerson, , , [facility] [address] [place] [address], [address], 10/02/2018 17:28:16 11/21/19 19 11/20/2018 MRI, shoul madhav, w/o contr ast No observ ation record ed. [facility] - Mri [address] [place], [address], 11/20/2018 17:06:57 05/07/2005/07/2019 elect gabriella johnston am No observ ation record ed. BARCODE Not Available 2018 09:10:08 Result Notes Documentation Provider Name and Address Organization Details Recorded Time Xr, Shoulder, 2 Or More View : [facility] Department of Radiology [address] [place] [address], [address] Name: OZZY CESAR : 50 Date of Service: 10/02/18824 Acct Number: [id number] Order Number: [id number] Location: [facility] Report Number: [id number] Service: REG REF/ Requesting Physician: Juliano Figueroa PA-C Category: ORTHOPEDIC RADIOLOGY [facility] Exam: SHOULDER 2 VIEW MINIMUM Left Signs/Symptoms: LT. SHD PAIN Report Status: Signed Examination: XR Shoulder Left, 3 views Indication: Left shoulder pain. Technique: 3 views of the Left shoulder were obtained. Comparison: None. Findings: No evidence for acute fracture or dislocation. Mild degenerative changes involving the left glenohumeral and left acromioclavicular joints. Soft tissues and lung garcia appear unremarkable. Impression: No evidence for acute fracture or dislocation. Date/Time of Dictation: 10/02/18920 Ship Loader (if applicable): Approved By Attending Radiologist: Lazarus Conklin 10/02/18920 Ordering physician: Juliano Figueroa Other providers: Juliano Figueroa, Juliano Figueroa, , Ming Nazario, , , Hamida Parr MD [address] [place] [address], [address], [facility] 10/02/2018 17:28:16 Problems Name Problem SNOMED Code Status Onset Date Resolution Date Notes Provider Name and Address Organization Details Recorded Time Erectile dysfunction due to type 2 diabetes mellitus 229833440 Active Delma geiger MD [address] [place] [address], [phone] , [facility] 6 08:24:33 Strain of neck muscle 353463162 Active Delma geiger MD [address] [place] [address], [address] , [facility] 4 15:31:46 Pain of shoulder region 47316378 Active Delma geiger MD [address] [place] [address], [phone] , [facility] 5 15:18:23 Type 2 diabetes mellitus without complication 255772963 Active Delma geiger MD [address] [place] [address], [address] , [facility] 6 08:34:29 Neck sprain 771099357 Active Not Available [facility] 3 03:02:42 Acute sinusitis 57658173 Active Delma geiger MD [address] [place] [address], [address] , [facility] 6 15:01:42 Problem Notes None recorded. Procedures Surgical History Date Name Laterality Status Provider Name and Address Organization Details Recorded Time 05/07/20 19 AWE 5-10 Year Plan - Male completed Delma nevarez MD [address] [place] [address], [phone], [facility] 05/07/2019 08:49:04 05/07/20 19 Mini-COG completed Delma nevarez MD [address] [place] [address], [phone], [facility] 05/07/2019 08:51:00 10/01/20 18 AWE 5-10 Year Plan - Male completed Charis Lubin [facility] 04/22/2018 08:31:06 04/22/20 18 Mini-COG completed Delma nevarez MD [address] [place] [address], [phone], [facility] 04/22/2018 08:51:28 06/28/20 17 Joint Replacement completed Delma nevarez MD [address] [place] [address], [phone], [facility] 07/11/2017 07:58:31 10/26/19 10 Knee arthroscopy/surg teressa completed Delma nevarez MD [address] [place] [address], [phone], [facility] 12/05/2012 12:49:32 09/19/19 08 Knee arthroscopy/surg teressa completed Delma nevarez MD [address] [place] [address], [phone], [facility] 12/05/2012 12:49:32 07/23/19 03 Other completed Delma nevarez MD [address] [place] [address], [phone], [facility] 12/04/2012 11:23:16 07/23/18 81 vasectomy completed Delma nevarez MD [address] [place] [address], [phone], [facility] 12/04/2012 11:26:25 07/23/18 71 Other completed Delma nevarez MD [address] [place] [address], [phone], [facility] 12/04/2012 11:18:58 Other completed Delma nevarez MD [address] [place] [address], [phone], [facility] 03/18/2015 08:30:35 appendectomy completed Delma nevarez MD [address] [place], [address], [facility] 12/04/2012 11:23:16 Imaging Results None recorded. Procedure Notes None recorded. Medical Equipment None Reported. Allergies Allergen ID Allergen Name Allergen Category Reaction Reaction Severity Criticality Documentation Date Start Date Code Code System Note Provider Name and Address Organization Details Recorded Time 667376 Product containin g penicilli n (product) medicatio n Not available Not available Not available 12/04/2012 01371 8001 SNOMED unkno wn T Mica madison MD [address] [place], [phone], [facility] - [facility] Physician [facility] 8 09:17:54 Medications Name Sig Start Date Stop Date Status Note LastModified by Organization Details LastModified Time Prescriptio n - Renewal 10/04 completed Not Available Not Available Not Available celecoxib 200 mg capsule 1 CAPSULE ONCE A DAY BEGINNING DAY AFTER SURGERY PO 30 10/17 completed Not Available Not Available Not Available cyclobenzap rine 10 mg tablet active Not Available Not Available Not Available amoxicillin 500 mg capsule TAKE 4 CAPSULE 1 HOUR PRIOR TO DENTAL APPT active Not Available Not Available No t Available metformin 500 mg tablet active Not Available Not Available Not Available clindamycin HCl 300 mg capsule 04/22 completed Not Available Not Available Not Available atorvastati n 10 mg tablet TAKE 1 TABLET DAILY 2019 active Not Available Not Available Not Avai lable azithromyci n 250 mg tablet TAKE 2 TABLETS BY MOUTH TODAY, THEN TAKE 1 TABLET DAILY FOR 4 DAYS 04/22 completed Not Available Not Available Not Available ibuprofen 800 mg tablet 04/22 completed Not Available Not Available Not Available acetazolami de 125 mg tablet 04/22 completed Not Available Not Available Not Available hydrocodone 5 mg-acetamin ophen 325 mg tablet active Not Available Not Available No t Available atovaquone 250 mg-proguani l 100 mg tablet 04/22 completed Not Available Not Available Not Available clindamycin HCl 150 mg capsule active Not Available Not Available Not Available topiramate 25 mg tablet TAKE 1 TABLET BY MOUTH TWICE A DAY 2019 active Not Available Not Available Not Avai lable ciprofloxac in 250 mg tablet active Not Available Not Available Not Available sulfamethox azole 800 mg-trimetho prim 160 mg tablet TAKE 1 TABLET BY MOUTH TWICE A DAY active Not Available Not Available No t Available aspirin 81 mg tablet,willy yed release Take 1 tablet every day by oral route. active Not Available Not Available No t Available simvastatin 40 mg tablet active Not Available Not Available Not Available hydromorpho ne 2 mg tablet TAKE 1/2 TO 1 TABLET BY MOUTH EVERY 3 HRS NEEDED FOR MODERATE TO SEVERE PAIN 10/17 completed Not Available Not Available Not Available OneTouch Ultra Test strips USE TO CHECK FINGER STICK BLOOD SUGAR DAILY active Not Available Not Available No t Available baclofen 10 mg tablet 04/22 completed Not Available Not Available Not Available simvastatin 20 mg tablet Take 1 tablet every day by oral route. active Not Available Not Available No t Available erythromyci n 5 mg/gram (0.5 %) eye ointment APPLY TO BOTH EYES 4 TIMES DAILY FOR 7 DAYS active Not Available Not Available No t Available metformin 1,000 mg tablet TAKE 1 TABLET TWICE A DAY 2019 active Not Available Not Available Not Avai lable triamcinolo ne acetonide 0.1 % topical ointment APPLY TO AFFECTED AREA ON TRUNK/LEG S/ARMS TWICE A DAY FOR 2 WEEKS THEN NEEDED FOR FLARE UPS 05/07 completed Not Available Not Available Not Available polymyxin B sulfate 10,000 unit-trimet hoprim 1 mg/mL eye drops APPLY 2 DROPS TO AFFECTED EYE(S) FOUR TIMES DAILY FOR 7 DAYS 05/07 completed Not Available Not Available Not Available gabapentin 100 mg capsule TAKE 1 CAPSULE BY MOUTH THREE TIMES A DAY 04/22 completed Not Available Not Available Not Available betamethaso ne dipropionat e 0.05 % topical ointment 05/07 completed Not Available Not Available Not Available fluticasone propionate 50 mcg/actuati on nasal spray,suspe nsion Inhale 2 sprays every day by intranasa l route. 05/07 completed Not Available Not Available Not Available tobramycin 0.3 %-dexametha sone 0.1 % eye drops,suspe nsion 1 DROP TO EACH EYE EVERY 4 HOURS FOR THEN NEXT 5 DAYS 05/07 completed Not Available Not Available Not Available oxycodone 5 mg tablet TAKE 1-2 TABLETS EVERY 4 HOURS NEEDED FOR PAIN PT MAY FILL LESS ORALLY 04/22 completed Not Available Not Available Not Available 12 Hour Cold Relief 120 mg tablet,exte nded release TAKE 1 TABLET(S) EVERY 12 HOURS BY ORAL ROUTE FOR 5 DAYS. (OTC NOT COVERED) active Not Available Not Available No t Available Co Q-10 100 mg capsule 04/18 completed Not Available Not Available Not Available Cialis 20 mg tablet active Not Available Not Available No t Available Lyrica 50 mg capsule Take 1 capsule 3 times a day by oral route. 05/07 completed Not Available Not Available Not Available chlorhexidi ne gluconate 0.12 % mouthwash active Not Available Not Available No t Available Fish Oil daily With DHA and EPA 05/07 completed Not Available Not Available Not Available multivitami n twice a day active Not Available Not Available No t Available Suprep Bowel Prep Kit 17.5 gram-3.13 gram-1.6 gram oral solution active Not Available Not Available Not Available Fluzone 7953-3903 45 mcg (15 mcg x 3)/0.5 mL intramuscul ar suspension TO BE ADMINISTE RED BY PHARMACIS T FOR IMMUNIZAT ION active Not Available Not Available No t Available Afluria 0444-0849(P F) 45 mcg (15 mcg x 3)/0.5 mL intramuscul ar syringe TO BE ADMINISTE RED BY PHARMACIS T FOR IMMUNIZAT ION active Not Available Not Available No t Available Fluarix Quad 5633-5105 (PF) 60 mcg (15 mcg x 4)/0.5 mL IM syringe TO BE ADMINISTE RED BY PHARMACIS T FOR IMMUNIZAT ION active Not Available Not Available No t Available Shingrix (PF) 50 mcg/0.5 mL intramuscul ar suspension, kit 05/07 completed Not Available Not Available Not Available OneTouch Ultra Blue Test Strip USE TO CHECK FINGER STICK BLOOD SUGAR DAILY 2018 active Not Available Not Available Not Avai lable Fluzone High-Dose 7242-2767 (PF) 180 mcg/0.5 mL intramuscul ar syringe 05/07 completed Not Available Not Available Not Available Fluzone High-Dose (PF) 180 mcg/0.5 mL intramuscul ar syringe PHARMACIS T ADMINISTE RED IMMUNIZAT ION ADMINISTE RED AT TIME OF DISPENSIN G 05/07 completed Not Available Not Available Not Available Vitals Date Recorded Systolic And Diastolic Provider Name and Address Organization Details Last Updated DateTime 10/17/2017 128/79 mm[Hg] Delma Elizabeth MD [address] [place], [address], [facility] [employer] 10/17/2017 09:05:08 Date Recorded Body height Body mass index (BMI) Body weight Oxygen saturation Oxygen saturation in Arterial blood by Pulse oximetry Heart rate Body temperature Provider Name and Address Organization Details Last Updated DateTime 8 198.12 cm 31.7 kg/m2 756310. 31 g 96 % 96 % 53 /min 98 [degF] Precious Roberts [facility] [employer] 8 09:03:17 Date Recorded Heart rate Provider Name an d Address Organization Details Last Updated DateTime 11/01/2018 52 /min Delma Elizabeth MD [address] [place] [address], [phone], [facility] 11/01/2018 08:29:33 Date Recorded Body height Body mass index (BMI) Body weight Body temperature Oxygen saturation Oxygen saturation in Arterial blood by Pulse oximetry Respiratory rate Systolic And Diastolic Provider Name and Address Organization Details Last Updated DateTime 9 198.12 cm 31.7 kg/m2 146834. 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 9 08:15:49 Date Recorded Body height Provider Name an d Address Organization Details Last Updated DateTime 11/07/2019 198.12 cm Charis Lubin [facility] [employer] 11/07/2019 08:11:12 Date Recorded Body height Respiratory rate Body mass index (BMI) Body weight Body temperature Oxygen saturation Oxygen saturation in Arterial blood by Pulse oximetry Heart rate Systolic And Diastolic Provider Name and Address Organization Details Last Updated DateTime 8 198.12 cm 14 /min 31.4 kg/m2 532441. 12 g 96.8 [degF] 95 % 95 % 51 /min 120/59 mm[Hg] Charis Wintersood [place] - [facility] 8 08:24:43 Date Recorded Heart rate Provider Name an d Address Organization Details Last Updated DateTime 05/07/2019 52 /min Delma Elizabeth MD [address] [place] [address], [phone], [facility] 05/07/2019 08:35:30 Date Recorded Body height Body mass index (BMI) Body weight Heart rate Body temperature Oxygen saturation Oxygen saturation in Arterial blood by Pulse oximetry Respiratory rate Systolic And Diastolic Provider Name and Address Organization Details Last Updated DateTime 9 198.12 cm 31 kg/m2 389458. 76 g 38 /min 98.3 [degF] 95 % 95 % 20 /min 106/55 mm[Hg] Sherri Orozco [facility] 9 08:23:42 Social History Question Answer Notes LastModified by Organizat ion Details LastModified Time Tobacco Smoking Status Former Smoker Quit 1966. Started age 13. 1/2 ppd Delma Elizabeth MD [address] [place] [address], [phone], [facility] 12/04/2012 11:26:18 How Much Tobacco Do You Chew? None Information not available 05/07/2019 What Type Of Diet Are You Following? CARBOHYDRATE Low Carb Information not available 12/04/2012 Education Post Graduate Inform ation not available 12/04/2012 Date Of Last Colonoscopy 12/18/13 WNL Information not available 12/18/2013 Do You Have A Health Care Proxy? Yes Spouse. HCP On File At Home Drawn By Dial Painter Information not available 05/07/2019 Have You Fallen Within The Last 12 Months Yes Information not available 11/07/2019 How Many Falls Have You Had Within The Last 12 Months? 1 Information not available 11/07/2019 If >2 Falls, Or 1 Fall With Serious Injury, Is There An Action Plan In Place? No [email or web address] Information not available 11/07/2019 Have You Wharton Down, Depressed, Or Hopeless In The Last 2 Weeks? No [email or web address] Information not available 11/07/2019 Do You Have Little Interest Or Pleasure In Doing Things? No [email or web address] Information not available 11/07/2019 Does The Patient Have Fever And Cough Or Shortness Of Breath AND In The Last 14 Days Has The Patient Come In Contact With Someone With Confirmed 2019-nCoV? No Information not available 11/07/2019 Does The Patient Have Fever And Cough Or Shortness Of Breath AND In The Last 14 Days Has The Patient Traveled From [facility], [place], [place], [place] Or [place]? No [email or web address] Information not available 11/07/2019 Does The Patient Have Fever And Lower Respiratory Illness Requiring Hospitalization Without An Underlying Diagnosis? No [email or web address] Information not available 11/07/2019 Does The Patient Have Fever Or Lower Respiratory Symptoms Such As Cough Or Shortness Of Breath? No [email or web address] Information not available 11/07/2019 In The Last 14 Days, Has The Patient Traveled To [place], [place], [place], [place] Or [place] Including [place] And [place]? No [email or web address] Information not available 11/07/2019 In The Last 14 Days, Has The Patient Had Close Contact With A Coronavirus Patient? No [email or web address] Information not available 11/07/2019 How Often Do You Use Sunscreen Sometimes Information not available 12/04/2012 How Often Do You Wear A Seatbelt Always Information not available 12/04/2012 Illicit Or Recreational Drugs No Information not available 12/04/2012 Do You Take Daily Aspirin Yes Information not available 12/04/2012 Marital Status Infor mation not available 12/04/2012 What Was The Date Of Your Most Recent Tobacco Screening? 11/07/2019 [email or web address] Information not available 11/07/2019 How Many Children Do You Have? 2 Information not available 12/04/2012 Smoke Alarm In Home Yes And [place] Information not available 12/04/2012 How Much Tobacco Do You Smoke? No Information not available 05/07/2019 Sex: Unknown Functional Status Question Answer Note LastModified by Organizat ion Details LastModified Time What is your level of alcohol consumption? Occasional social 1-2 x a week. 3 beers or wine Information not available 12/04/2012 Do you or have you ever used smokeless tobacco? 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 [facility] Information not available 12/04/2012 Do you or have you ever used e-cigarettes or vape? Never used electronic cigarettes [facility] Information not available 05/07/2019 What is your exercise level? Moderate Spin class [facility] Information not available 12/04/2012 Mental Status None recorded. Family History Relationship Description Onset Age of this Age Resolved Age Notes LastModified by Organization Details LastModified Time Mother Heart disease 91 failur e (Decea sed) [facility] on Not available 03/31/2016 08:19:20 Daughter Diabetes mellitus [facility] on Not available 03/31/2016 08:19:20 Brother Problem brain deform ity (cavit y) [facility] on Not available 03/31/2016 08:19:20 Father Malignant neoplastic disease 92 prosta te (Decea sed) [facility] on Not available 03/31/2016 08:19:20 Brother Obstructive sleep apnea syndrome [facility] on Not available 03/31/2016 08:19:20 Notes:BRCA gene in brother Medical History Condition Response Obstructive Sleep Apnea Y Joint Pain Y Diabetes Y Other Disease(s): Y Immunizations Vaccine Type Date Status Note Provider Nam e and Address Organization Details Recorded Time pneumococcal polysaccharide PPV23 3 completed Not Available [facility] 08/09/2019 02:09:43 Tdap 1 completed Delma Elizabeth MD [address] [place] [address], [phone], [facility] 12/04/2012 11:09:27 Hep A, adult 0 completed Delma Elizabeth MD [address] [place] [address], [phone], [facility] 12/04/2012 11:16:00 zoster live 2 completed Delma Elizabeth MD [address] [place] [address], [phone], [facility] 12/05/2012 12:49:32 influenza, unspecified formulation 4 completed Delam Elizabeth MD [address] [place] [address], [address] [place] [address], [facility] 05/07/2014 08:13:58 Pneumococcal conjugate PCV 13 6 completed Not Available [facility] 08/09/2019 02:10:33 Influenza, split virus, trivalent, preservative 6 completed Not Available [facility] 08/09/2019 02:11:11 influenza, unspecified formulation 5 completed Delma Elizabeth MD [address] [place] [address], [address] [place] [address], [facility] 05/14/2015 15:00:30 pneumococcal polysaccharide PPV23 6 completed Delma Elizabeth MD [address] [place] [address], [address] [place] [address], [facility] 05/12/2016 14:54:11 Hep A, adult 0 completed Delma Elizabeth MD [address] [place] [address], [address] [place] [address], [facility] 05/12/2016 14:54:30 Hep A, adult 5 completed Delma Elizabeth MD [address] [place] [address], [address] [place] [address], [facility] 05/12/2016 14:54:36 Hep A, adult 6 completed Delma Elizabeth MD [address] [place] [address], [phone], [facility] 05/12/2016 14:54:43 typhoid, parenteral 0 completed Delma Elizabeth MD [address] [place] [address], [address] [place] [address], [facility] 05/12/2016 14:55:00 typhoid, parenteral 5 completed Delma Elizabeth MD [address] [place] [address], [phone], [facility] 05/12/2016 14:55:06 Influenza, MDCK, quadrivalent, preservative 7 completed Not Available [facility] 08/09/2019 02:11:48 typhoid, unspecified formulation 8 completed Delma Elizabeth MD [address] [place] [address], [phone], [facility] 04/22/2018 08:33:01 Yellow fever, unspecified 8 completed Delma Elizabeth MD [address] [place] [address], [phone], [facility] 04/22/2018 08:33:11 Influenza, split virus, quadrivalent, preservative 9 completed Sherri Orozco [facility] 05/07/2019 08:17:49 zoster recombinant 9 completed Delma Elizaebth MD [address] [place] [address], [address] [place] [address], [facility] 05/16/2019 15:19:21 zoster recombinant 9 completed Delma Elizabeth MD [address] [place] [address], [phone], [facility] 05/16/2019 15:19:55 Past Encounters Encounter ID Performer Location Encounter Start Date Encounter Closed Date Diagnosis/Indication Diagnosis SNOMED-CT Code Diagnosis ICD10 Code Diagnosis Note [id number] Delma geiger MD [facility] office [address] [place] [phone] 12/04/2012 09:50:16 12/04/2012 13:02:02 [id number] Delma geiger MD [facility] office [address] [place] [phone] 03/10/2013 10:41:59 03/10/2013 11:18:29 [id number] Delma geiger MD [facility] office [address] [place] [id number] 09/10/2013 14:58:36 09/10/2013 15:44:08 Erectile dysfunction due to type 2 diabetes mellitus [id number] Strain of neck muscle 757842090 reivewed home PT exercises. Handout given to Pt to try. It is causing altered sensation in the arms. Is improving with new pillow however. If not improving. adivsed ot call for formal PT referral. Screening for malignant neoplasm of colon [id number] Delma geiger MD [facility] office [address] [place] [id number] 03/17/2014 08:13:01 03/17/2014 08:52:32 Type 2 diabetes mellitus without complication [id number] Recheck lipids. Advised that if he has some muscle soreness on medicaiotn , it might be worth trying a differne tmed in the class. Will try atorvastat in 10mg instead. Due for other rouitne lab work. Will call with results. Do not antipiate much need for change [id number] Delma geiger MD [facility] office [address] [place] [address] [id number] 09/16/2014 14:42:57 09/16/2014 16:03:35 Type 2 diabetes mellitus without complication 700078113 Pain of sh oulder region 76266747 Ac joint irriaiotn. Advised ot warm up shoulder prior to exercise and cool it down afterwards . Naproxen BID for the next ten days. [id number] Delma geiger MD [facility] office [address] [place] [id number] 03/18/2015 08:03:31 03/18/2015 09:20:58 Type 2 diabetes mellitus without complication [id number] check A1C and Urine Adult [facility] th examination [id number] Up to date on shots. Will need PNA next year. Encouaged ongoing exercises for continues wiehgt loss. Check labs as below. Up to date on screenings . he plans on getting flu shot this year. Screening for malignant neoplasm of prostate 853038590 [id number] Delma geiger MD [facility] office [address] [place] [id number] 09/13/2015 14:27:58 09/13/2015 15:02:46 Acute sinusitis 30625109 J01.90 treat with abx and flonase. 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 Type 2 jose betes mellitus without complication 069592261 E11.9 due for annual screen [id number] Delma geiger MD [facility] office [address] [place] [id number] 03/31/2016 07:58:33 03/31/2016 08:45:19 Adult health examination 638069709 Z00.00 Prevnar this yearr. Encouaged ongoing exercises for continues weihgt loss. He is down five punds Check labs as below. He plans on getting flu shot this year. Screening for malignant neoplasm of prostate 172888024 Z12.5 Active or passive immunization 313365027 Z23 Screening for cardiovascular system disease 053735562 Z13.6 Type 2 jose betes mellitus without complication 785483642 E11.9 due for annual screen. Eye eval 09/27/15. Fott eval done today [id number] Delma geiger MD [facility] office [address] [place] [id number] 10/04/2016 08:02:34 10/04/2016 09:12:48 Type 2 diabetes mellitus without complication 643025639 E11.9 Due for recheck. His sugars have been trending higher thatn he would like. Check A1C and if still within normal range, continue to monitor. If not, will adjust med. Eye eval 09/11/16. [id number] Delma geiger MD [facility] office [address] [place] [id number] 04/18/2017 08:30:53 04/18/2017 09:08:06 Adult health examination 789295545 Z00.00 Encouraged ongoing exercises for continued weight loss. He is down six pounds Check labs as below. He plans on getting flu shot this year. Left knee replacemen t planned in June. Type 2 jose betes mellitus without complication 002743526 E11.9 Due for recheck. His sugars have been trending higher than he would like. Check A1C and if still within normal range, continue to monitor. If not, will adjust med. Eye eval 09/11/16. Foot eval done today Screening for malignant neoplasm of prostate 207405637 Z12.5 [id number] MD Dung Callejas industrial design intern[address] [phone] 10/17/2017 08:39:33 10/17/2017 09:26:29 Type 2 diabetes mellitus without complication 806398919 E11.9 Due for recheck. His sugars have been trending higher than he would like. Check A1C and if still within normal range, continue to monitor. If not, will adjust med. Eye eval due. Neuropathy due to diabetes mellitus 213690200 E11.40 Start trial of medication for neuropathy . [id number] MD Dung Callejas industrial design intern[address] [phone] 04/22/2018 08:07:55 04/22/2018 09:06:01 Adult health examination 877271618 Z00.00 Encouraged ongoing exercises for continued weight loss. Update colon and PSA screenings . AAA screen done in past and normal. Check Hep C status. Update flu. He will have shingric through pharmacy. recent eye eval done. Hepatitis C screening 41 6047936 Z11.59 Type 2 jose betes mellitus without complication 040824376 E11.9 He reports recent elvation in fasting AM sugar. Will recheck A1C and adjust meds if needed. Urine check today. Lipids at last visit. Eye eval done i . Will address neuropathy Allergy to penicillin 91 373465 Z88.0 send for eval Screening for malignant neoplasm of colon 624025484 Z12.11 pt has D/C paperwork fo last colnoscopy recommendi ng five year F/U despite normal eval. Will arrange Neuropathy due to diabetes mellitus 046644740 E11.40 Start trial of medication for neuropathy . Screening for malignant neoplasm of prostate 481305436 Z12.5 [id number] MD DANIELA Callejas_Siobhan industrial design intern[address] [phone] 11/01/2018 08:03:06 11/01/2018 08:32:20 Neuropathy due to diabetes mellitus 668521745 E11.40 Check labs today. BP stable. Has eye eval scheduled this month. Type 2 jose betes mellitus without complication 929284000 E11.9 [id number] T Evelin geiger MD SVMYajaira_Aubu industrial design intern [address] [place] [phone] 05/07/2019 08:01:16 05/07/2019 08:58:21 Adult health examination 564124221 Z00.00 Encouraged ongoing exercises for continued weight loss. Up to date colo. Screen PSA given FH. AAA screen done in past and normal. Flu,PNA and shingrix up to date. He will have pharmacy send Shingrix record. He is due in September for eye exam Type 2 jose betes mellitus without complication 817564339 E11.9 Screening for malignant neoplasm of prostate 489722522 Z12.5 Sinus bradycardia 051433 05 R00.1 stable and not symptomati c [id number] Delma geiger MD [employer] design [address] [phone] 11/07/2019 07:50:56 11/07/2019 09:04:25 Type 2 diabetes mellitus without complication 182248416 E11.9 due for lab check. Not able to check vitals or foot eval today given limitation s of telephone visit Neuropathy 704963159 G62 .9 Trial of gabapentin was not successful . Lyrica too expensive on his plan. Will try Topiramate to see if this helps. Neuropathy due to diabetes mellitus 973982725 E11.40 Health Concerns Section Related Observation LastModified by Organization Detai ls LastModified Time None Recorded Concern Status LastModified by Organization Details LastModified Time None Recorded Advance Directives Directive None Recorded Payers Insurance Date Sequence Insurance Name Policy Number Policy Wallace Covered Member ID Wallace Member ID Guarantor Name 09/22/2023 1 [facility]UE (MEDICARE REPLACEMENT PPO) [id number] Ozzy Cesar [id number] Ozzy Cesar 09/22/2023 1 MARTHA [id number] Ozzy Cesar [id number] Ozzy Cesar 09/22/2023 1 [place] [id number] Ozzy Cesar [id number] Ozzy Cesar 03/26/2003 1 *SELF PAY* Br nica Cesar 09/22/2023 1 [employer] [place] [employer] (PPO) [id number] Ozzy Cesar [id number] Ozzy Cesar 09/22/2023 1 [employer] - [employer] (PPO) [id number] Ozzy Cesar [id number] Ozzy Cesar 09/22/2023 1 [place] [id number] Ozzy Cesar [id number] Ozzy Cesar 09/22/2023 1 [place] [id number] Ozzy Cesar [id number] Ozzy Tali 09/22/2023 1 [place] [id number] Ozzy Cesar [id number] Ozzy Cesar 09/22/2023 1 [place] [facility] ELECT (PPO) [id number] Ozzy Cesar [id number] Ozzy Cesar 09/22/2023 1 [place] [id number] Ozzy Cesar [id number] Ozzy Cesar 09/22/2023 1 [place] [id number] Ozzy Cesar [id number] Ozzy Cesar 09/22/2023 1 [place]HMO[place] [id number] Ozzy Cesar [id number] Ozzy Cesar 09/22/2023 1 [place] [id number] Ozzy Cesar [id number] Ozzy Cesar 09/22/2023 1 [place] [employer] [place] Ozzy Cesar [id number] Ozzy Cesar 09/22/2023 1 [place]MEDIC[place]PLACEMENT PPO) [id number] Ozzy Cesar [id number] Ozzy Cesar 09/22/2023 1 [place]MED[place]PL[place]EMENT PPO) [id number] Ozzy Cesar [id number] Ozzy Cesar 09/22/2023 1 [place] [id number] Ozzy Cesar [id number] Ozzy Cesar 09/22/2023 1 [place]MEDIC[place]PLACEMENT PPO) [id number] Ozzy Cesar [id number] Ozzy Cesar 09/22/2023 1 [facility] [id number] Ozzy Cesar [id number] Ozzy Cesar 09/22/2023 1 [facility]: MEDICARE PPO MARIA EUGENIA (MEDICARE REPLACEMENT PPO) [id number] Ozzy Cesar [id number] Ozzy Cesar Notes Date Note Type Note Provider Name and Address Organization Details Recorded Time 10/17/2017 text/html Here for routine schedule F/U appt on his DM. He states that he would like to consider medication for the neuropathy in his feet. He states that it can wake him up at night. he states that although he is reluctant to add another meds to his regimen, the pain is starting to overwhelm and he would like a better quality of living. His fasting AM sugars have been creeping up over 130 jessica. He states that he has had decreased activity due to his knee replacement surgery in Jun. He is still working with PT and had a manipulation under anesthesia. He has appt with surgeon on Sunday. Delma Elizabeth MD [address] [place] [address], [phone], [facility]. 10/17/2017 09:24:51 04/22/2018 text/html Medicare AWV/IPPEReported bypatient.Hearing:no limitations; some hearing loss Vision:using corrective lenses Speech:normal Mobility:no limitations Transferring:no limitations Toileting:no limitations Bathing:no limitations Eating:no limitations Dressing:no limitations Activitiesexercises on a regular basis (core strengthening and spin classes) Medication Management:no limitations Shopping:no limitations Housework:no assistance required Financial:no limitations Home Safety:reviewed and discussed shower safety; benefit of guard rails; minimizing clutter; seat belt use; driving precautions; transition zones between hard floors and carpet; regular routine exercise recommended to improve ADL/IDL and reduce fall risk Legal documents on file for Advance DirectiveMOLST form given to pt at last visit Pt has a dry cough. He reports that his BRCA testing was neg. He states that he is travelling to [place]. He is getting over a round of poison maritza/sumac/ he has been using steroid creams. He states thta he has still has issues wiht neuropathy. Up to 300mg Gabapentin oper dose was not effective. Woul dlike to disucss options. Delma Elizabeth MD [address] [place] [address], [phone], [facility]. 04/22/2018 08:58:13 11/01/2018 text/html Here for routine six month F/U today. He states that he is generally feeling well. He states that in the last three months, he did have a couple of faintish episodes. One occurred at night. He did not check his sugar when this happened. He states that he has been get 130-140 in the morning for his readings. He continues to check daily. He states that he has not strength and ROM in his right shoulder. he is currently in PT and plans to get a MRI of the shoulder. He states that he has jazzy getting Massage as well. He continues to use his meds as scheduled. He has F/U with ortho after MRI in November. Delma Elizabeth MD [address] [place] [address], [address], [facility]. 11/01/2018 08:32:38 05/07/2019 text/html Medicare AWV/IPPEReported bypatient.Hearing:no limitations; some hearing loss, not worsening Vision:using corrective lenses Speech:normal Mobility:no limitations Transferring:no limitations Toileting:no limitations Bathing:no limitations Eating:no limitations Dressing:no limitations Activitiesexercises on a regular basis (spin classes) Medication Management:no limitations Shopping:no limitations Housework:no assistance required Financial:no limitations Home Safety:reviewed and discussed shower safety; benefit of guard rails; minimizing clutter; seat belt use; driving precautions; transition zones between hard floors and carpet; regular routine exercise recommended to improve ADL/IDL and reduce fall risk Pt staes that he is not symptomatic from his low heart rate. Able to tolerate spin class. He is still delaing with strength loss in the left shoulder given his OA. He states that he aden shave decreased ROM in his knee replacement. It can make him stumble. He has had some readings of 140 on Blood sugar in the AM. Delma Elizabeth MD [address] [place] [address], [phone], [facility]. 05/07/2019 08:56:44 11/07/2019 text/html Pt presenting fo r Telehealth Visit for F/U on DM. Pt states that he has been feeling healthy. He states that he feels like his neuropathy is progressing. He states that eh can be waken up at night with sensation of heat in his feet and sooting pains into the shins. He states that he fees like there is slight neuropathy in the hands. Sensitivity to cold. This has been noticed for the last couple of months over the winter. He has been doing his exercises at home. His gym has set up zoom classes. Delma Elizabeth MD [address] [place], [address], [facility]. 11/07/2019 08:53:51
--- OUTSIDE RECORDS SUMMARY | 2025-02-06 10:49 | XMS_ITS | Clinical Summary ---
Author Organization [facility] Address [address] [place] [address] Care Team Providers Care Production Tester Name Role Phone Unavailable Primary Care Provider Unavailabl e Medications aspirin 81 MG EC tablet 1 tablet Once a day , Orally Active atorvaSTATin (LIPITOR) 10 MG tablet 1 tablet Once a day , Orally Active celecoxib (CeleBREX) 200 MG capsule 1 capsule once a day BEGINNING DAY AFTER SURGERY , po Active metFORMIN (GLUCOPHAGE) 1000 MG tablet 1 tablet with meals Twice a day , Orally Active oxyCODONE (ROXICODONE) 5 MG immediate release tablet 1-2 tablets q4h prn pain, pt may fill less , Orally 8 Active Social History Tobacco Use Types Packs/Day Years Used Date Smoking Tobacco: Never Assessed Sex and Gender Information Value Date Recorded Sex Assigned at Not on file Legal Sex Male 9:45 PM EST Gender Identity Not on file Sexual Orientation Not on file Last Filed Vital Signs Vital Sign Reading Time Taken Comments Blood Pressure - - Pulse - - Temperature - - Respiratory Rate - - Oxygen Saturation - - Inhaled Oxygen Concentration - - Weight 122 kg (270 lb) 06/27/2019 8:15 AM EST Height 188 cm (6' 2 ) 06/27/2019 8:15 AM EST Body Mass Index 34.67 06/27/2019 8:15 AM EST Plan of Treatment Health Maintenance Due Date Last Done Comments Blood Pressure 1950 Lipid Panel 1950 Depression Screening 1954 Hepatitis C Screening 1968 DTaP,Tdap,and Td Vaccines (1 - Tdap) 1969 CT Colonography 11/24/1995 Colonoscopy 11/24/1995 Colorectal Cancer Screening 11/24/1995 FIT 11/24/1995 FOBT 11/24/1995 Multitarget Stool DNA (Cologuard) 11/24/1995 Sigmoidoscopy 11/24/1995 Pneumococcal Vaccine (1 of 1 - PCV) 2000 Zoster Vaccine (1 of 2) 2000 COVID-19 Vaccine (2023-2 5 season) 2024 Influenza Vaccine (#1) 2025 Meningococcal B Vaccines Aged Out No longer eligible based on patient's age to complete this topic Meningococcal Vaccines Aged Out No lo nger eligible based on patient's age to complete this topic
--- NOTE | 2025-02-06 10:56 | HO.SPINEOV ---
Vital Signs 02/06/25 11:00 Height 6 ft 1 in Weight 274 lb BMI 36.1 Intake Visit Reasons: cervical radiculopathy Intake Note: Mr. Cesar is here today c/o neck pain. Block Captain Required: No Allergies No Known Allergies Allergy (Verified 02/06/25 11:00) Physical Exam Vital Signs: BMI result Body Mass Index 36.1 Assessment & Plan Assessment & Plan (1) Degenerative arthritis of cervical spine: Code(s): M47.812 - Spondylosis without myelopathy or radiculopathy, cervical region Category: Medical Plan Dear colleague Thank you for referring Ozzy Cesar to the office today with a chief complaint of chronic neck pain. HPI: This 74-year-old male developed chronic neck pain after a football injury in 1970. Pain is located in the posterior neck or radiating down both shoulders. It does not radiate into the arm. His neck motion is restricted in all directions. Tried chiropractic therapy in the past without success. When the symptoms further progressed he decided to see Dr. Pastor ren in 2020. No decision on surgical intervention was made. Recently he was helping his daughter renovating the house. He was lifting up a radiator a few days later he had severe neck pain that lasted for approximately 2 weeks before he returned to baseline. Again no radiation down his arms. He does sometimes have tingling on the left side of his neck when he is driving. He also noted that he has weakness of his left deltoid muscle which is not new and unchanged. PMH: Type 2 diabetes, appendectomy Medications: Januvia, tamsulosin, tizanidine, glipizide, gabapentin, naproxen, atorvastatin, baby aspirin Allergies: None Social history: . 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 Nonsmoker. Physical Exam: Pleasant male. On inspection there are no deformities. He is able to move his neck in all directions with restrictions predominantly towards the left. Spurling sign produces neck pain no radiation down his arms. There is a grade 5 minus weakness of the left deltoid. Remainder of the muscle groups are intact. No sensory deficits. No pathological reflexes. Radiological Studies: MRI of the cervical spine done at [facility] on 12/17/2024 shows multilevel severe left-sided foraminal stenosis C4-C7 and a grade 1 C7-T1 spondylo listhesis. Impression/Plan: This patient is suffering from chronic neck pain without radiculopathy. He does have mild weakness of his deltoid which is related to the severe foraminal stenosis C4 and C5. However, his main symptom is chronic neck pain for which I do not see a single cause on his MRI. In other words, we could perform multilevel foraminotomies but this will most likely not help for his neck pain and in fact may aggravate his neck pain. He fully understood my explanation. Thank you for allowing me to participate in your patients care. total time spent was 50 minutes in counseling ,coordination of plan, personal review of imaging, surgical decision making and subsequent plan Benigno Kelley MD, PhD Spine Fellowship Trained Neurosurgeon Director, [facility] Coding Level of Care Code New Pt Level 4 (20155) Diagnoses Degenerative arthritis of cervical spine M47.812
[2025-02-06 11:00] VITALS: BMI 36.1
== END 2025-02-06 11:55 | disposition home or self-care (01) ==
LOC: HO.HNS 10:25
PROVIDERS: Visit Provider Neurological Surgery
DX: M47.812 Spondylosis without myelopathy or radiculopathy, cervical region (principal)
CPT/HCPCS: 99204

== ENCOUNTER → 2025-02-06 10:24 | Outpatient (BNVA) | payer MEDICARE, SELFPAY | PROVIDERS: Visit Provider Neurological Surgery | DX: M47.812 Spondylosis without myelopathy or radiculopathy, cervical region (principal) | CPT/HCPCS: 99202 ==